=== PATIENT | female | born 1975 | race Caucasian/White ===

== ENCOUNTER 2017-01-01 23:26 | Emergency (ER) | payer SELFPAY ==
[~2017-01-01] VITALS: Ht 154.9 cm; Wt 113.0 kg
[~2017-01-01 23:26] MED LIST: AMOXICILLIN500 MG PO; ATENOLOL50 MG PO; ATIVAN0.5 MG PO; BACTRIM DS1 TAB PO; CEPHALEXIN500 MG PO; CLARITIN10 M1 PO; FERR SULFATE325 MG PO; FERRAPLUS 90 PO; FERROUS SULFAT325 MG PO; FLINTSTONE1 PO; HYDROCHLOROT12.5 MG OR; IRON325 M1 PO; LISINOP/HCTZ1 TAB PO; LISINOPRIL10 MG PO; LISINOPRIL20 MG PO; LORTAB 5/325 PO; LORTAB 5/3255 MG PO; LORTAB 7.57.5 MG PO; MOTRIN600 MG/TAB PO; NAPROSYN500 MG PO; NO MEDS; OMEPRAZOLE20 MG PO; PENICILLN VK500 MG OR; PENICILLN VK500 MG PO; PERCOCET1 TA4 PO; PHENERGAN25 MG/TAB PO; ROBITUSSIN AC10 ML PO; TESSALON PER100 MG PO; TORADOL PO; ULTRAM50 M1 PO; ULTRAM50 MG OR; ULTRAM50 MG PO; XANAX XR0.5 MG PO; ZANTAC 150 PO
[2017-01-02 00:22] LABS: HEMATOCRIT 44.6 % (37.0-47.0); HEMOGLOBIN 14.4 g/dl (12.0-16.0); MEAN CORPUSCULAR HGB 29.7 pG CALC (26.0-32.0); MEAN CORPUSCULAR HGB CONC 32.3 g/L CALC (32.0-36.0); NEUT# 12.12 thou/uL (2.00-7.15); RED BLOOD COUNT 4.85 mill/uL (4.20-5.60); RED CELL DISTRI WIDTH 12.9 % (11.5-15.5)
[2017-01-02] MEDS ORDERED: TRAZODONE50 MG PO (00:28)
[2017-01-02] MEDS ORDERED: HYDROCHLOROT25 MG PO (00:29)
[2017-01-02] MEDS ORDERED: BUSPIRONE5 MG PO (00:29)
[2017-01-02 00:37] LABS: ALKALINE PHOSPHATASE 70 u/l (38-126); ANION GAP 19 (6-22 (CALC)); BILIRUBIN, TOTAL 0.5 mg/dL (0.0-1.4); BUN 10 mg/dL (7-17); BUN/CREATININE RATIO 10 (12-20 (CALC)); CALCIUM 9.8 mg/dL (8.4-10.2); CARBON DIOXIDE 28 mmol/l (22-30); CHLORIDE 98 mmol/l (95-108); GFR > 60 ML/MIN (>=60 (CALC)); GFR FOR AFR.AMER. > 60 ML/MIN (>=60 (CALC)); GLUCOSE 162 mg/dL (65-105); POTASSIUM 3.7 mmol/l (3.5-5.1); SGOT/AST 21 u/l (14-36); SGPT/ALT 41 u/l (9-52); SODIUM 142 mmol/l (137-146); TOTAL PROTEIN 8.4 g/dL (6.3-8.2); URINE BILIRUBIN - DIPSTICK NEGATIVE (NEGATIVE); URINE BLOOD DIPSTICK NEGATIVE (NEGATIVE); URINE CLARITY CLEAR; URINE COLOR YELLOW; URINE GLUCOSE - DIPSTICK NEGATIVE (NEGATIVE); URINE KETONE NEGATIVE (NEGATIVE); URINE LEUK ESTERASE NEGATIVE (NEGATIVE); URINE NITRITE - DIPSTICK NEGATIVE (Negative); URINE PROTEIN - DIPSTICK NEGATIVE (NEG-TRACE); URINE SPECIFIC GRAVITY <=1.005; URINE UROBILINOGEN - DIPSTICK 0.2 E.U./dL (0.2)
[2017-01-02 00:49] LABS: MYOGLOBIN 30 ng/mL (0 - 62)
[2017-01-02 01:21] LABS: ACT PARTIAL THROMBO TIME 27.3 SECONDS (20.0-32.5); INTERNATIONAL NORMALIZED RATIO 0.9 RATIO (0.7-1.3)
[2017-01-02 02:56] VITALS: BP 137/77
== END 2017-01-02 02:53 | disposition home or self-care (01) | DRG 313 ==
LOC: ED 23:26
PROVIDERS: Emergency Medicine
DX: R07.89 Other chest pain (principal); I10 Essential (primary) hypertension; F41.0 Panic disorder [episodic paroxysmal anxiety]; J45.909 Unspecified asthma, uncomplicated

== ENCOUNTER 2017-10-08 20:06 | Emergency (ER) | payer SELFPAY ==
[~2017-10-08] VITALS: Ht 154.9 cm; Wt 111.0 kg
[~2017-10-08 20:06] MED LIST changes: +BUSPIRONE5 MG PO; +HYDROCHLOROT25 MG PO; +TRAZODONE50 MG PO
[2017-10-08] MEDS ORDERED: ORPHENADRINE100 MG PO (22:58)
[2017-10-08] MEDS ORDERED: IBUPROFEN600 MG PO (22:58)
[2017-10-08 23:22] VITALS: BP 170/83
== END 2017-10-08 23:20 | disposition home or self-care (01) | DRG 552 ==
LOC: ED 20:06
DX: M47.816 Spondylosis without myelopathy or radiculopathy, lumbar region (principal)

== ENCOUNTER 2018-02-22 19:15 | Emergency (ER) | payer SELFPAY ==
[~2018-02-22 19:15] MED LIST changes: +IBUPROFEN600 MG PO; +ORPHENADRINE100 MG PO
== END 2018-02-22 19:30 | disposition left against medical advice (07) | DRG 951 ==
LOC: ED 19:15 → LWOBS 19:30
DX: Z91.19 Patient's noncompliance with other medical treatment and regimen (principal)

== ENCOUNTER 2018-03-02 11:56 | Emergency (ER) | payer SELFPAY ==
[~2018-03-02] VITALS: Ht 154.9 cm; Wt 108.6 kg
[2018-03-02 13:21] LABS: URINE BILIRUBIN - DIPSTICK NEGATIVE (NEGATIVE); URINE BLOOD DIPSTICK NEGATIVE (NEGATIVE); URINE COLOR YELLOW; URINE GLUCOSE - DIPSTICK NEGATIVE (NEGATIVE); URINE KETONE NEGATIVE (NEGATIVE); URINE NITRITE - DIPSTICK NEGATIVE (Negative); URINE PH 7.5 (4.5-8.0); URINE PROTEIN - DIPSTICK NEGATIVE (NEG-TRACE); URINE UROBILINOGEN - DIPSTICK 0.2 E.U./dL (0.2)
[2018-03-02 13:28] LABS: HEMATOCRIT 43.2 % (37.0-47.0); HEMOGLOBIN 14.1 g/dl (12.0-16.0); IMMATURE GRANULOCYTES 0.5 % (0.0-5.0); MEAN CELL VOLUME 91.9 fL CALC (80.0-100.0); MEAN CORPUSCULAR HGB CONC 32.6 g/L CALC (32.0-36.0); NEUT# 8.64 thou/uL (2.00-7.15); RED BLOOD COUNT 4.7 mill/uL (4.20-5.60); RED CELL DISTRI WIDTH 12.2 % (11.5-15.5)
[2018-03-02 13:31] LABS: URINE LEUK ESTERASE SMALL (NEGATIVE)
[2018-03-02 13:48] LABS: ANION GAP 16 (6-22 (CALC)); BUN 8 mg/dL (7-17); BUN/CREATININE RATIO 10 (12-20 (CALC)); CARBON DIOXIDE 30 mmol/l (22-30); CHLORIDE 98 mmol/l (95-108); CREATININE 0.8 mg/dL (0.5-1.0); GFR > 60 ML/MIN (>=60 (CALC)); GFR FOR AFR.AMER. > 60 ML/MIN (>=60 (CALC)); MAGNESIUM 1.8 mg/dL (1.6-2.3); SODIUM 140 mmol/l (137-146)
[2018-03-02 13:54] LABS: URINE RBC 0-2 RBC/hpf (0-5); URINE SQUAMOUS EPITHELIAL CELL MODERATE EPI/hpf (0-FEW)
[2018-03-02 13:55] LABS: URINE BACTERIA MANY hpf
[2018-03-02] MEDS ORDERED: CEPHALEXIN500 M1 PO (14:07)
[2018-03-02 14:09] VITALS: BP 127/76
== END 2018-03-02 14:13 | disposition home or self-care (01) | DRG 948 ==
LOC: ED 11:56
PROVIDERS: Family Medicine
DX: R53.1 Weakness (principal); N39.0 Urinary tract infection, site not specified; I10 Essential (primary) hypertension

== ENCOUNTER 2018-03-21 09:24 | Emergency (ER) | payer SELFPAY ==
[~2018-03-21] VITALS: Ht 154.9 cm; Wt 108.6 kg
[~2018-03-21 09:24] MED LIST changes: +CEPHALEXIN500 M1 PO
[2018-03-21 10:22] LABS: HEMATOCRIT 42.4 % (37.0-47.0); HEMOGLOBIN 13.7 g/dl (12.0-16.0); IMMATURE GRANULOCYTES 0.3 % (0.0-5.0); MEAN CELL VOLUME 92.8 fL CALC (80.0-100.0); MEAN CORPUSCULAR HGB CONC 32.3 g/L CALC (32.0-36.0); NEUT# 6.97 thou/uL (2.00-7.15); RED BLOOD COUNT 4.57 mill/uL (4.20-5.60); RED CELL DISTRI WIDTH 12.4 % (11.5-15.5)
[2018-03-21 10:39] LABS: ALBUMIN 4.2 g/dL (3.2-5.0); ALKALINE PHOSPHATASE 52 u/l (38-126); ANION GAP 15 (6-22 (CALC)); BILIRUBIN, TOTAL 0.2 mg/dL (0.0-1.4); BUN 11 mg/dL (7-17); BUN/CREATININE RATIO 16 (12-20 (CALC)); CARBON DIOXIDE 29 mmol/l (22-30); CHLORIDE 101 mmol/l (95-108); CREATININE 0.7 mg/dL (0.5-1.0); GFR > 60 ML/MIN (>=60 (CALC)); GFR FOR AFR.AMER. > 60 ML/MIN (>=60 (CALC)); MAGNESIUM 1.7 mg/dL (1.6-2.3); POTASSIUM 4.3 mmol/l (3.5-5.1); SGOT/AST 18 u/l (14-36); SODIUM 141 mmol/l (137-146)
[2018-03-21 10:43] LABS: URINE BILIRUBIN - DIPSTICK NEGATIVE (NEGATIVE); URINE BLOOD DIPSTICK NEGATIVE (NEGATIVE); URINE COLOR YELLOW; URINE GLUCOSE - DIPSTICK NEGATIVE (NEGATIVE); URINE KETONE NEGATIVE (NEGATIVE); URINE LEUK ESTERASE NEGATIVE (NEGATIVE); URINE NITRITE - DIPSTICK NEGATIVE (Negative); URINE PROTEIN - DIPSTICK NEGATIVE (NEG-TRACE); URINE UROBILINOGEN - DIPSTICK 0.2 E.U./dL (0.2)
[2018-03-21] MEDS ORDERED: ONDANSETRON4 MG PO (11:07)
[2018-03-21 11:19] VITALS: BP 132/66
== END 2018-03-21 11:25 | disposition home or self-care (01) | DRG 392 ==
LOC: ED 09:24
PROVIDERS: Emergency Medicine
DX: R11.0 Nausea (principal); R53.1 Weakness

== ENCOUNTER 2018-04-06 14:52 | Emergency (ER) | payer SELFPAY ==
[~2018-04-06] VITALS: Ht 154.9 cm; Wt 109.1 kg
[~2018-04-06 14:52] MED LIST changes: +ONDANSETRON4 MG PO
[2018-04-06 16:08] LABS: HEMATOCRIT 42.1 % (37.0-47.0); HEMOGLOBIN 13.8 g/dl (12.0-16.0); IMMATURE GRANULOCYTES 0.4 % (0.0-5.0); MEAN CELL VOLUME 90.9 fL CALC (80.0-100.0); MEAN CORPUSCULAR HGB 29.8 pG CALC (26.0-32.0); MEAN CORPUSCULAR HGB CONC 32.8 g/L CALC (32.0-36.0); NEUT# 8.76 thou/uL (2.00-7.15); RED BLOOD COUNT 4.63 mill/uL (4.20-5.60); RED CELL DISTRI WIDTH 12.3 % (11.5-15.5)
[2018-04-06 16:22] LABS: BUN 6 mg/dL (7-17); BUN/CREATININE RATIO 10 (12-20 (CALC)); CARBON DIOXIDE 30 mmol/l (22-30); CHLORIDE 96 mmol/l (95-108); CREATININE 0.6 mg/dL (0.5-1.0); GFR > 60 ML/MIN (>=60 (CALC)); GFR FOR AFR.AMER. > 60 ML/MIN (>=60 (CALC)); SODIUM 138 mmol/l (137-146)
[2018-04-06 16:58] LABS: ANION GAP 15 (6-22 (CALC)); POTASSIUM 3.3 mmol/l (3.5-5.1)
[2018-04-06] MEDS ORDERED: K-TAB20 MEQ PO (17:04)
[2018-04-06 17:27] VITALS: BP 146/87
== END 2018-04-06 17:53 | disposition home or self-care (01) | DRG 948 ==
LOC: ED 14:52
PROVIDERS: Family Medicine
DX: R53.81 Other malaise (principal); I10 Essential (primary) hypertension

== ENCOUNTER 2018-04-21 00:39 | Emergency (ER) | payer SELFPAY ==
[~2018-04-21] VITALS: Ht 154.9 cm; Wt 110.0 kg
[~2018-04-21 00:39] MED LIST changes: +K-TAB20 MEQ PO
[2018-04-21 02:43] LABS: HEMATOCRIT 40.9 % (37.0-47.0); HEMOGLOBIN 13.2 g/dl (12.0-16.0); IMMATURE GRANULOCYTES 0.4 % (0.0-5.0); MEAN CELL VOLUME 91.9 fL CALC (80.0-100.0); MEAN CORPUSCULAR HGB 29.7 pG CALC (26.0-32.0); MEAN CORPUSCULAR HGB CONC 32.3 g/L CALC (32.0-36.0); NEUT# 8.42 thou/uL (2.00-7.15); RED BLOOD COUNT 4.45 mill/uL (4.20-5.60); RED CELL DISTRI WIDTH 12.4 % (11.5-15.5)
[2018-04-21 03:00] LABS: ALBUMIN 4.4 g/dL (3.2-5.0); ALKALINE PHOSPHATASE 50 u/l (38-126); AMYLASE < 30 u/l (30-110); ANION GAP 15 (6-22 (CALC)); BILIRUBIN, TOTAL 0.4 mg/dL (0.0-1.4); BUN 10 mg/dL (7-17); BUN/CREATININE RATIO 15 (12-20 (CALC)); CARBON DIOXIDE 30 mmol/l (22-30); CHLORIDE 99 mmol/l (95-108); CREATININE 0.6 mg/dL (0.5-1.0); GFR > 60 ML/MIN (>=60 (CALC)); GFR FOR AFR.AMER. > 60 ML/MIN (>=60 (CALC)); LIPASE 65 u/l (23-300); POTASSIUM 3.4 mmol/l (3.5-5.1); SGOT/AST 20 u/l (14-36); SODIUM 141 mmol/l (137-146); TOTAL PROTEIN 7.6 g/dL (6.3-8.2)
[2018-04-21 03:05] LABS: URINE BILIRUBIN - DIPSTICK NEGATIVE (NEGATIVE); URINE BLOOD DIPSTICK NEGATIVE (NEGATIVE); URINE COLOR YELLOW; URINE GLUCOSE - DIPSTICK NEGATIVE (NEGATIVE); URINE KETONE NEGATIVE (NEGATIVE); URINE LEUK ESTERASE NEGATIVE (NEGATIVE); URINE NITRITE - DIPSTICK NEGATIVE (Negative); URINE PROTEIN - DIPSTICK NEGATIVE (NEG-TRACE); URINE SPECIFIC GRAVITY 1.015; URINE UROBILINOGEN - DIPSTICK 0.2 E.U./dL (0.2)
[2018-04-21 03:12] LABS: MYOGLOBIN 34 ng/mL (0 - 62)
[2018-04-21 05:00] VITALS: BP 138/79
== END 2018-04-21 05:30 | disposition home or self-care (01) | DRG 392 ==
LOC: ED 00:39
PROVIDERS: Emergency Medicine
DX: R11.0 Nausea (principal); I10 Essential (primary) hypertension; E87.6 Hypokalemia; Z86.14 Personal history of Methicillin resistant Staphylococcus aureus infection
CPT/HCPCS: J1956

== ENCOUNTER 2018-05-03 19:44 | Emergency (ER) | payer SELFPAY ==
[~2018-05-03] VITALS: Ht 154.9 cm; Wt 109.0 kg
[2018-05-03] MEDS ORDERED: FAMOTIDINE20 M1 PO (19:53)
[2018-05-03] MEDS ORDERED: METRONIDAZOL500 MG PO (19:53)
[2018-05-03] MEDS ORDERED: BIAXIN XL PAC500 MG PO (19:53)
[2018-05-03 19:55] VITALS: BP 131/73
== END 2018-05-03 20:54 | disposition home or self-care (01) | DRG 392 ==
LOC: ED 19:44
DX: R11.0 Nausea (principal); A04.8 Other specified bacterial intestinal infections; I10 Essential (primary) hypertension

== ENCOUNTER 2018-05-18 01:00 | Emergency (ER) | payer SELFPAY ==
[~2018-05-18] VITALS: Ht 154.9 cm; Wt 109.0 kg
[~2018-05-18 01:00] MED LIST changes: +BIAXIN XL PAC500 MG PO; +FAMOTIDINE20 M1 PO; +METRONIDAZOL500 MG PO
[2018-05-18 02:40] VITALS: BP 136/70
== END 2018-05-18 02:40 | disposition home or self-care (01) | DRG 310 ==
LOC: ED 01:00
DX: R00.2 Palpitations (principal)

== ENCOUNTER 2018-06-21 20:56 | Emergency (ER) | payer SELFPAY ==
[~2018-06-21] VITALS: Ht 154.9 cm; Wt 109.0 kg
[2018-06-21 22:03] LABS: HEMATOCRIT 41.9 % (37.0-47.0); HEMOGLOBIN 13.5 g/dl (12.0-16.0); IMMATURE GRANULOCYTES 0.5 % (0.0-5.0); MEAN CELL VOLUME 91.1 fL CALC (80.0-100.0); MEAN CORPUSCULAR HGB 29.3 pG CALC (26.0-32.0); MEAN CORPUSCULAR HGB CONC 32.2 g/L CALC (32.0-36.0); NEUT# 11.11 thou/uL (2.00-7.15); RED BLOOD COUNT 4.6 mill/uL (4.20-5.60); RED CELL DISTRI WIDTH 12.4 % (11.5-15.5)
[2018-06-21] MEDS ORDERED: METFORMIN500 MG PO (22:03)
[2018-06-21 22:04] LABS: URINE BILIRUBIN - DIPSTICK NEGATIVE (NEGATIVE); URINE BLOOD DIPSTICK NEGATIVE (NEGATIVE); URINE COLOR YELLOW; URINE GLUCOSE - DIPSTICK NEGATIVE (NEGATIVE); URINE KETONE NEGATIVE (NEGATIVE); URINE LEUK ESTERASE NEGATIVE (NEGATIVE); URINE NITRITE - DIPSTICK NEGATIVE (Negative); URINE PROTEIN - DIPSTICK NEGATIVE (NEG-TRACE); URINE UROBILINOGEN - DIPSTICK 0.2 E.U./dL (0.2)
[2018-06-21 22:19] LABS: ALBUMIN 4.6 g/dL (3.2-5.0); ALKALINE PHOSPHATASE 53 u/l (38-126); ANION GAP 16 (6-22 (CALC)); BILIRUBIN, TOTAL 0.4 mg/dL (0.0-1.4); BUN 9 mg/dL (7-17); BUN/CREATININE RATIO 11 (12-20 (CALC)); CARBON DIOXIDE 31 mmol/l (22-30); CHLORIDE 98 mmol/l (95-108); CREATININE 0.8 mg/dL (0.5-1.0); GFR > 60 ML/MIN (>=60 (CALC)); GFR FOR AFR.AMER. > 60 ML/MIN (>=60 (CALC)); POTASSIUM 3.7 mmol/l (3.5-5.1); SGOT/AST 23 u/l (14-36); SODIUM 141 mmol/l (137-146); TOTAL PROTEIN 7.8 g/dL (6.3-8.2)
[2018-06-21] MEDS ORDERED: CIPROFLOXACN500 MG PO (23:29)
[2018-06-21 23:34] VITALS: BP 146/78
[2018-06-22 01:03] LABS: C. DIFFICILE TOXIN A&B NEGATIVE (NEGATIVE)
== END 2018-06-21 23:49 | disposition home or self-care (01) | DRG 392 ==
LOC: ED 20:56
PROVIDERS: Family Medicine
DX: R19.7 Diarrhea, unspecified (principal); R50.9 Fever, unspecified

== ENCOUNTER 2018-08-19 19:31 | Emergency (ER) | payer SELFPAY ==
[~2018-08-19] VITALS: Ht 154.9 cm; Wt 106.6 kg
[~2018-08-19 19:31] MED LIST changes: +CIPROFLOXACN500 MG PO; +METFORMIN500 MG PO
[2018-08-19] MEDS ORDERED: LASIX 40 MG40 MG/TAB PO (19:41)
[2018-08-19 20:14] LABS: HEMATOCRIT 42.4 % (37.0-47.0); HEMOGLOBIN 13.4 g/dl (12.0-16.0); IMMATURE GRANULOCYTES 0.5 % (0.0-5.0); MEAN CELL VOLUME 91.8 fL CALC (80.0-100.0); MEAN CORPUSCULAR HGB CONC 31.6 g/L CALC (32.0-36.0); NEUT# 10.52 thou/uL (2.00-7.15); RED BLOOD COUNT 4.62 mill/uL (4.20-5.60); RED CELL DISTRI WIDTH 12.3 % (11.5-15.5)
[2018-08-19 20:15] LABS: URINE BILIRUBIN - DIPSTICK NEGATIVE (NEGATIVE); URINE BLOOD DIPSTICK NEGATIVE (NEGATIVE); URINE COLOR YELLOW; URINE GLUCOSE - DIPSTICK NEGATIVE (NEGATIVE); URINE KETONE NEGATIVE (NEGATIVE); URINE LEUK ESTERASE NEGATIVE (NEGATIVE); URINE NITRITE - DIPSTICK NEGATIVE (Negative); URINE PH 5.5 (4.5-8.0); URINE PROTEIN - DIPSTICK NEGATIVE (NEG-TRACE); URINE SPECIFIC GRAVITY <=1.005; URINE UROBILINOGEN - DIPSTICK 0.2 E.U./dL (0.2)
[2018-08-19 20:40] LABS: ALBUMIN 4.6 g/dL (3.2-5.0); ALKALINE PHOSPHATASE 63 u/l (38-126); ANION GAP 17 (6-22 (CALC)); BILIRUBIN, TOTAL 0.4 mg/dL (0.0-1.4); BUN 8 mg/dL (7-17); BUN/CREATININE RATIO 11 (12-20 (CALC)); CARBON DIOXIDE 28 mmol/l (22-30); CHLORIDE 99 mmol/l (95-108); CREATININE 0.7 mg/dL (0.5-1.0); GFR > 60 ML/MIN (>=60 (CALC)); GFR FOR AFR.AMER. > 60 ML/MIN (>=60 (CALC)); POTASSIUM 3.7 mmol/l (3.5-5.1); SGOT/AST 22 u/l (14-36); SODIUM 140 mmol/l (137-146); TOTAL PROTEIN 7.8 g/dL (6.3-8.2)
[2018-08-19] MEDS ORDERED: LOMOTIL2.5 MG PO (20:54)
[2018-08-19] MEDS ORDERED: ZOFRAN ODT4 MG PO (20:54)
[2018-08-19 21:21] VITALS: BP 119/68
== END 2018-08-19 21:21 | disposition home or self-care (01) | DRG 392 ==
LOC: ED 19:31
PROVIDERS: Family Medicine
DX: R19.7 Diarrhea, unspecified (principal); D72.829 Elevated white blood cell count, unspecified; E11.9 Type 2 diabetes mellitus without complications; I10 Essential (primary) hypertension

== ENCOUNTER 2018-09-08 18:55 | Emergency (ER) | payer SELFPAY ==
[~2018-09-08] VITALS: Ht 157.5 cm; Wt 108.0 kg
[~2018-09-08 18:55] MED LIST changes: +LASIX 40 MG40 MG/TAB PO; +LOMOTIL2.5 MG PO; +ZOFRAN ODT4 MG PO
[2018-09-08 19:32] LABS: ALBUMIN 5.1 g/dL (3.2-5.0); ALKALINE PHOSPHATASE 75 u/l (38-126); ANION GAP 21 (6-22 (CALC)); BUN 9 mg/dL (7-17); BUN/CREATININE RATIO 12 (12-20 (CALC)); CARBON DIOXIDE 28 mmol/l (22-30); CHLORIDE 96 mmol/l (95-108); CREATININE 0.7 mg/dL (0.5-1.0); ETHYL ALCOHOL 0 mg/dl (0-30); GFR > 60 ML/MIN (>=60 (CALC)); GFR FOR AFR.AMER. > 60 ML/MIN (>=60 (CALC)); POTASSIUM 3.8 mmol/l (3.5-5.1); SGOT/AST 29 u/l (14-36); SODIUM 141 mmol/l (137-146); TOTAL PROTEIN 8.9 g/dL (6.3-8.2)
[2018-09-08 19:34] LABS: BILIRUBIN, TOTAL 0.8 mg/dL (0.0-1.4)
[2018-09-08 19:43] LABS: HEMOGLOBIN 14.2 g/dl (12.0-16.0); IMMATURE GRANULOCYTES 0.4 % (0.0-5.0); MEAN CELL VOLUME 90.5 fL CALC (80.0-100.0); MEAN CORPUSCULAR HGB 29.2 pG CALC (26.0-32.0); MEAN CORPUSCULAR HGB CONC 32.3 g/L CALC (32.0-36.0); NEUT# 13.03 thou/uL (2.00-7.15); RED BLOOD COUNT 4.86 mill/uL (4.20-5.60)
[2018-09-08 19:44] LABS: URINE BILIRUBIN - DIPSTICK NEGATIVE (NEGATIVE); URINE BLOOD DIPSTICK NEGATIVE (NEGATIVE); URINE COLOR YELLOW; URINE GLUCOSE - DIPSTICK NEGATIVE (NEGATIVE); URINE KETONE NEGATIVE (NEGATIVE); URINE LEUK ESTERASE NEGATIVE (NEGATIVE); URINE NITRITE - DIPSTICK NEGATIVE (Negative); URINE PH 5.5 (4.5-8.0); URINE PROTEIN - DIPSTICK NEGATIVE (NEG-TRACE); URINE SPECIFIC GRAVITY <=1.005; URINE UROBILINOGEN - DIPSTICK 0.2 E.U./dL (0.2)
[2018-09-08 19:45] LABS: MYOGLOBIN 27 ng/mL (0 - 62)
[2018-09-08 19:54] LABS: BARBITURATES NEGATIVE (NEGATIVE); COCAINE NEGATIVE (NEGATIVE); METHADONE NEGATIVE (NEGATIVE); TETRAHYDROCANNABIONOL NEGATIVE (NEGATIVE); TRICYLIC ANTIDEPRESSANTS NEGATIVE (NEGATIVE)
[2018-09-08 19:55] LABS: OXCYCODONE NEGATIVE (NEGATIVE)
[2018-09-08 20:57] VITALS: BP 142/64
== END 2018-09-08 20:55 | disposition left against medical advice (07) | DRG 310 ==
LOC: ED 18:55 → ED-I 19:10 → ED 19:10 → ED-I 19:49 → ED 20:55
PROVIDERS: Emergency Medicine
DX: R00.2 Palpitations (principal); R94.31 Abnormal electrocardiogram [ECG] [EKG]; D72.829 Elevated white blood cell count, unspecified; I10 Essential (primary) hypertension; E11.9 Type 2 diabetes mellitus without complications; Z91.19 Patient's noncompliance with other medical treatment and regimen; Z79.84 Long term (current) use of oral hypoglycemic drugs
CPT/HCPCS: J2060; Q9967

== ENCOUNTER 2018-10-09 13:48 | Emergency (ER) | payer SELFPAY ==
[~2018-10-09] VITALS: Ht 157.5 cm; Wt 105.0 kg
[2018-10-09 15:15] LABS: HEMOGLOBIN 13.7 g/dl (12.0-16.0); IMMATURE GRANULOCYTES 0.4 % (0.0-5.0); MEAN CELL VOLUME 91.3 fL CALC (80.0-100.0); MEAN CORPUSCULAR HGB 29.1 pG CALC (26.0-32.0); MEAN CORPUSCULAR HGB CONC 31.9 g/L CALC (32.0-36.0); NEUT# 8.92 thou/uL (2.00-7.15); RED BLOOD COUNT 4.71 mill/uL (4.20-5.60); RED CELL DISTRI WIDTH 11.9 % (11.5-15.5)
[2018-10-09 15:29] LABS: ANION GAP 14 (6-22 (CALC)); BUN 8 mg/dL (7-17); BUN/CREATININE RATIO 10 (12-20 (CALC)); CARBON DIOXIDE 32 mmol/l (22-30); CHLORIDE 98 mmol/l (95-108); CREATININE 0.8 mg/dL (0.5-1.0); GFR > 60 ML/MIN (>=60 (CALC)); GFR FOR AFR.AMER. > 60 ML/MIN (>=60 (CALC)); POTASSIUM 3.7 mmol/l (3.5-5.1); SODIUM 141 mmol/l (137-146)
[2018-10-09] MEDS ORDERED: K-TAB20 MEQ PO (15:39)
[2018-10-09 15:56] VITALS: BP 125/68
== END 2018-10-09 15:56 | disposition home or self-care (01) | DRG 948 ==
LOC: ED 13:48
PROVIDERS: Family Medicine
DX: R53.1 Weakness (principal); R42 Dizziness and giddiness; T43.595A Adverse effect of other antipsychotics and neuroleptics, initial encounter; I10 Essential (primary) hypertension; E11.9 Type 2 diabetes mellitus without complications; Z79.84 Long term (current) use of oral hypoglycemic drugs

== ENCOUNTER 2018-11-13 18:40 | Observation (INO) | payer SELFPAY ==
[~2018-11-13] VITALS: Ht 154.9 cm; Wt 108.0 kg
--- NOTE | 2018-11-13 18:53 | NUR ---
PATIENT AMBULATES TO ROOM WITH STEADY GAIT
[2018-11-13 19:32] LABS: HEMATOCRIT 40.8 % (37.0-47.0); HEMOGLOBIN 13.3 g/dl (12.0-16.0); IMMATURE GRANULOCYTES 0.4 % (0.0-5.0); MEAN CELL VOLUME 90.1 fL CALC (80.0-100.0); MEAN CORPUSCULAR HGB 29.4 pG CALC (26.0-32.0); MEAN CORPUSCULAR HGB CONC 32.6 g/L CALC (32.0-36.0); NEUT# 11.61 thou/uL (2.00-7.15); RED BLOOD COUNT 4.53 mill/uL (4.20-5.60); RED CELL DISTRI WIDTH 12.2 % (11.5-15.5)
[2018-11-13 19:50] LABS: ALBUMIN 4.7 g/dL (3.2-5.0); ALKALINE PHOSPHATASE 57 u/l (38-126); ANION GAP 19 (6-22 (CALC)); BUN 7 mg/dL (7-17); BUN/CREATININE RATIO 8 (12-20 (CALC)); CARBON DIOXIDE 29 mmol/l (22-30); CHLORIDE 95 mmol/l (95-108); CREATININE 0.9 mg/dL (0.5-1.0); GFR > 60 ML/MIN (>=60 (CALC)); GFR FOR AFR.AMER. > 60 ML/MIN (>=60 (CALC)); LIPASE 73 u/l (23-300); POTASSIUM 3.9 mmol/l (3.5-5.1); SGOT/AST 20 u/l (14-36); SODIUM 139 mmol/l (137-146)
[2018-11-13 19:52] LABS: AMYLASE < 30 u/l (30-110); BILIRUBIN, TOTAL 0.4 mg/dL (0.0-1.4)
[2018-11-13 20:42] LABS: URINE BILIRUBIN - DIPSTICK NEGATIVE (NEGATIVE); URINE BLOOD DIPSTICK NEGATIVE (NEGATIVE); URINE COLOR YELLOW; URINE GLUCOSE - DIPSTICK NEGATIVE (NEGATIVE); URINE KETONE NEGATIVE (NEGATIVE); URINE LEUK ESTERASE NEGATIVE (NEGATIVE); URINE NITRITE - DIPSTICK NEGATIVE (Negative); URINE PROTEIN - DIPSTICK NEGATIVE (NEG-TRACE); URINE UROBILINOGEN - DIPSTICK 0.2 E.U./dL (0.2)
--- NOTE | 2018-11-13 21:56 | NUR ---
DR HOLCOMB IN WITH PT. RECEIVED REPORT FROM SOLEDAD WHITE. 2 LITER OF SALINE UP PER ORDER.
--- NOTE | 2018-11-13 22:45 | NUR ---
REPORT GIVEN TO SOLEDAD HAMEED.
--- NOTE | 2018-11-13 23:12 | NUR ---
Admission Note Report Given to: ARACELIS Transported by: Wheelchair X Stretcher Transported with: X Nurse Transporter X Patent IV O2 Coordinator Of Rehabilitation Services
--- NOTE | 2018-11-13 23:14 | NUR ---
RECEIVED REPORT FROM NURSE JIMENEZ, PATIENT TRANSPORTED VIA BED, AMBULATED AND ASSISTED IN BED, WITH SALINE LOCK ON LAC G20 PATENT AND FLUSHES WELL, NOTED TO HAVE FREQUEST BOUTS OF DIARRHEA, REINFORCED ON FULL LIQUID DIET ORDERED, INSTRUCTED ON HAND WASHING, ASSISTED TO SHOWER, ASSISTED BACK IN BED, ORIENTED TO ROOM AMD CALL LIGHT SYSTEM, IN ROOM.
[2018-11-13 23:21] VITALS: BP 148/78
--- NOTE | 2018-11-14 01:09 | NUR ---
CALLED DR. HOLCOMB AT [phone] ABOUT PATIENT REQUEST TO CONTINUE EVENING HOME MEDICATION, REQUEST SENT TO PHARMACY
[2018-11-14 03:29] VITALS: BP 137/81
--- NOTE | 2018-11-14 04:19 | NUR ---
PATIENT RESTING IN BED WITH EYES CLOSED, DENIES DISCOMFORTS AT THIS TIME, REMAINS ON CONTACT ISOLATION, CALL LIGHT AT REACH.
--- NOTE | 2018-11-14 06:50 | NUR ---
PT REPORT RECIEVED FROM SOLEDAD HENDRICKS. PT RESTING .NO S/S OF DISTRESS. CALL LIGHT IN REACH. WILL CONTINUE TO MONITOR.
[2018-11-14 08:03] VITALS: BP 146/81
--- NOTE | 2018-11-14 08:03 | NUR ---
PT A/O X3. RESP EVEN AND UNLABORED. LUNG SOUNDS CLEAR. BOWEL SOUNDS ACTIVE X4. STRONG RADIAL, WEAK PEDAL PULSES. #20 LAC NS @100. SITE APPEARS HEALTHY. TRACE OF EDEMA NOTED TO BLE. SKIN INTACT. PT DENIES ANY PAIN OR NEEDS. POC DISCUSSED. SAFETY PRECAUTIONS IN PLACE. CONTACT PRECAUTIONS. CALL LIGHT IN REACH. WILL CONTINUE TO MONITOR.
[2018-11-14 09:45] VITALS: BP 146/81
--- NOTE | 2018-11-14 11:49 | NUR ---
PT WATCHING TELEVISION. NO C/O PAIN OR NEEDS. IV FLUIDS INFUSIING. CALL LIGHT IN REACH. WILL CONTINUE TO MONITOR.
[2018-11-14] MEDS ORDERED: FIRST-VANCOM25 MG/ML PO (12:24)
--- NOTE | 2018-11-14 13:14 | NUR ---
D/C INSTRUCTIONS DISCUSSED W/ PT. PT STATES UNDERSTANDING. IV REMOVED; CATHETER INTACT. PT WAITING FOR PRESCRIPTION TO BE FILLED THROUGH [facility].
--- NOTE | 2018-11-14 13:36 | NUR ---
Discharge instructions given. Patient verbalizes understanding of same. Discharged in stable condition via Ambulatory to Home with family. All belongings sent with pt.
== END 2018-11-14 13:36 | disposition home or self-care (01) | DRG 373 ==
LOC: ED 18:40 → ED-I 21:55 → ED 22:15 → MS2 22:16
PROVIDERS: Emergency Medicine; ADMIT Internal Medicine; ATTEND Internal Medicine
DX: A04.72 Enterocolitis due to Clostridium difficile, not specified as recurrent (principal); E11.9 Type 2 diabetes mellitus without complications; I10 Essential (primary) hypertension; F41.9 Anxiety disorder, unspecified; Z86.14 Personal history of Methicillin resistant Staphylococcus aureus infection; Z79.84 Long term (current) use of oral hypoglycemic drugs; Z86.19 Personal history of other infectious and parasitic diseases
CPT/HCPCS: G0378; Q9967

== ENCOUNTER 2018-11-22 11:47 | Emergency (ER) | payer SELFPAY ==
[~2018-11-22] VITALS: Ht 154.9 cm; Wt 115.0 kg
[~2018-11-22 11:47] MED LIST changes: +FIRST-VANCOM25 MG/ML PO
[2018-11-22 13:38] LABS: HEMATOCRIT 42.2 % (37.0-47.0); HEMOGLOBIN 13.6 g/dl (12.0-16.0); IMMATURE GRANULOCYTES 0.4 % (0.0-5.0); MEAN CORPUSCULAR HGB CONC 32.2 g/L CALC (32.0-36.0); NEUT# 6.94 thou/uL (2.00-7.15); RED BLOOD COUNT 4.69 mill/uL (4.20-5.60); RED CELL DISTRI WIDTH 12.5 % (11.5-15.5)
[2018-11-22 13:45] LABS: ALBUMIN 4.7 g/dL (3.2-5.0); ALKALINE PHOSPHATASE 66 u/l (38-126); ANION GAP 16 (6-22 (CALC)); BILIRUBIN, TOTAL 0.4 mg/dL (0.0-1.4); BUN 8 mg/dL (7-17); BUN/CREATININE RATIO 10 (12-20 (CALC)); CARBON DIOXIDE 28 mmol/l (22-30); CHLORIDE 99 mmol/l (95-108); CREATININE 0.8 mg/dL (0.5-1.0); GFR > 60 ML/MIN (>=60 (CALC)); GFR FOR AFR.AMER. > 60 ML/MIN (>=60 (CALC)); POTASSIUM 4.1 mmol/l (3.5-5.1); SGOT/AST 33 u/l (14-36); SODIUM 139 mmol/l (137-146)
[2018-11-22 13:57] LABS: MYOGLOBIN 23 ng/mL (0 - 62)
[2018-11-22 15:04] VITALS: BP 143/85
== END 2018-11-22 15:04 | disposition home or self-care (01) | DRG 149 ==
LOC: ED 11:47
PROVIDERS: Emergency Medicine
DX: R42 Dizziness and giddiness (principal); F41.9 Anxiety disorder, unspecified; I10 Essential (primary) hypertension; E11.9 Type 2 diabetes mellitus without complications; Z79.84 Long term (current) use of oral hypoglycemic drugs

== ENCOUNTER 2018-12-07 10:45 | Emergency (ER) | payer SELFPAY ==
[~2018-12-07] VITALS: Ht 154.9 cm; Wt 107.0 kg
[2018-12-07 11:29] LABS: HEMATOCRIT 42.6 % (37.0-47.0); HEMOGLOBIN 13.3 g/dl (12.0-16.0); IMMATURE GRANULOCYTES 0.5 % (0.0-5.0); MEAN CELL VOLUME 92.2 fL CALC (80.0-100.0); MEAN CORPUSCULAR HGB 28.8 pG CALC (26.0-32.0); MEAN CORPUSCULAR HGB CONC 31.2 g/L CALC (32.0-36.0); NEUT# 6.83 thou/uL (2.00-7.15); RED BLOOD COUNT 4.62 mill/uL (4.20-5.60); RED CELL DISTRI WIDTH 12.5 % (11.5-15.5)
[2018-12-07 11:35] LABS: URINE BILIRUBIN - DIPSTICK NEGATIVE (NEGATIVE); URINE BLOOD DIPSTICK NEGATIVE (NEGATIVE); URINE COLOR YELLOW; URINE GLUCOSE - DIPSTICK NEGATIVE (NEGATIVE); URINE KETONE NEGATIVE (NEGATIVE); URINE LEUK ESTERASE NEGATIVE (NEGATIVE); URINE NITRITE - DIPSTICK NEGATIVE (Negative); URINE PROTEIN - DIPSTICK NEGATIVE (NEG-TRACE); URINE UROBILINOGEN - DIPSTICK 0.2 E.U./dL (0.2)
[2018-12-07 11:44] LABS: ALBUMIN 4.4 g/dL (3.2-5.0); ALKALINE PHOSPHATASE 61 u/l (38-126); ANION GAP 14 (6-22 (CALC)); BILIRUBIN, TOTAL 0.3 mg/dL (0.0-1.4); BUN 11 mg/dL (7-17); BUN/CREATININE RATIO 16 (12-20 (CALC)); CARBON DIOXIDE 29 mmol/l (22-30); CHLORIDE 101 mmol/l (95-108); CREATININE 0.7 mg/dL (0.5-1.0); GFR > 60 ML/MIN (>=60 (CALC)); GFR FOR AFR.AMER. > 60 ML/MIN (>=60 (CALC)); LIPASE 65 u/l (23-300); POTASSIUM 4.2 mmol/l (3.5-5.1); SGOT/AST 26 u/l (14-36); SODIUM 139 mmol/l (137-146); TOTAL PROTEIN 7.6 g/dL (6.3-8.2)
[2018-12-07] MEDS ORDERED: ZOFRAN4 M1 PO (13:04)
[2018-12-07 13:13] VITALS: BP 159/74
== END 2018-12-07 13:18 | disposition home or self-care (01) | DRG 392 ==
LOC: ED 10:45
DX: R11.0 Nausea (principal); E11.65 Type 2 diabetes mellitus with hyperglycemia; I10 Essential (primary) hypertension; Z79.84 Long term (current) use of oral hypoglycemic drugs

== ENCOUNTER 2018-12-17 12:19 | Emergency (ER) | payer SELFPAY ==
[~2018-12-17] VITALS: Ht 154.9 cm; Wt 100.0 kg
[~2018-12-17 12:19] MED LIST changes: +ZOFRAN4 M1 PO
[2018-12-17 13:37] LABS: URINE BILIRUBIN - DIPSTICK NEGATIVE (NEGATIVE); URINE BLOOD DIPSTICK NEGATIVE (NEGATIVE); URINE COLOR YELLOW; URINE GLUCOSE - DIPSTICK NEGATIVE (NEGATIVE); URINE KETONE NEGATIVE (NEGATIVE); URINE LEUK ESTERASE NEGATIVE (Negative); URINE NITRITE - DIPSTICK NEGATIVE (Negative); URINE PROTEIN - DIPSTICK NEGATIVE (NEG-TRACE); URINE SPECIFIC GRAVITY <=1.005; URINE UROBILINOGEN - DIPSTICK 0.2 E.U./dL (0.2)
[2018-12-17 13:49] LABS: URINE CLARITY CLEAR
[2018-12-17 14:17] VITALS: BP 160/58
== END 2018-12-17 14:19 | disposition home or self-care (01) | DRG 950 ==
LOC: ED 12:19
DX: Z79.84 Long term (current) use of oral hypoglycemic drugs (principal); I10 Essential (primary) hypertension; E11.9 Type 2 diabetes mellitus without complications; R19.7 Diarrhea, unspecified

== ENCOUNTER 2018-12-20 08:50 | Emergency (ER) | payer SELFPAY ==
[~2018-12-20] VITALS: Ht 154.9 cm; Wt 105.0 kg
[2018-12-20 09:25] LABS: URINE BILIRUBIN - DIPSTICK NEGATIVE (NEGATIVE); URINE BLOOD DIPSTICK NEGATIVE (NEGATIVE); URINE COLOR YELLOW; URINE GLUCOSE - DIPSTICK NEGATIVE (NEGATIVE); URINE KETONE NEGATIVE (NEGATIVE); URINE LEUK ESTERASE NEGATIVE (NEGATIVE); URINE NITRITE - DIPSTICK NEGATIVE (Negative); URINE PH 6.5 (4.5-8.0); URINE PROTEIN - DIPSTICK NEGATIVE (NEG-TRACE); URINE SPECIFIC GRAVITY <=1.005; URINE UROBILINOGEN - DIPSTICK 0.2 E.U./dL (0.2)
[2018-12-20 09:27] LABS: HEMATOCRIT 41.6 % (37.0-47.0); HEMOGLOBIN 13.1 g/dl (12.0-16.0); IMMATURE GRANULOCYTES 0.4 % (0.0-5.0); MEAN CELL VOLUME 90.6 fL CALC (80.0-100.0); MEAN CORPUSCULAR HGB 28.5 pG CALC (26.0-32.0); MEAN CORPUSCULAR HGB CONC 31.5 g/L CALC (32.0-36.0); NEUT# 8.1 thou/uL (2.00-7.15); RED BLOOD COUNT 4.59 mill/uL (4.20-5.60); RED CELL DISTRI WIDTH 12.3 % (11.5-15.5)
[2018-12-20 10:03] LABS: ALBUMIN 4.2 g/dL (3.2-5.0); ALKALINE PHOSPHATASE 63 u/l (38-126); AMYLASE 37 u/l (30-110); ANION GAP 15 (6-22 (CALC)); BUN 6 mg/dL (7-17); BUN/CREATININE RATIO 10 (12-20 (CALC)); CARBON DIOXIDE 26 mmol/l (22-30); CHLORIDE 100 mmol/l (95-108); CREATININE 0.7 mg/dL (0.5-1.0); GFR > 60 ML/MIN (>=60 (CALC)); GFR FOR AFR.AMER. > 60 ML/MIN (>=60 (CALC)); LIPASE 44 u/l (23-300); SGOT/AST 39 u/l (14-36); SODIUM 137 mmol/l (137-146); TOTAL PROTEIN 7.7 g/dL (6.3-8.2)
[2018-12-20 10:07] LABS: BILIRUBIN, TOTAL 0.7 mg/dL (0.0-1.4)
[2018-12-20] MEDS ORDERED: PHENERGAN25 MG/TAB PO (10:33)
[2018-12-20] MEDS ORDERED: LOMOTIL2.5 MG PO (10:33)
[2018-12-20 10:55] VITALS: BP 123/63
== END 2018-12-20 10:54 | disposition home or self-care (01) | DRG 305 ==
LOC: ED 08:50
PROVIDERS: Family Medicine
DX: I10 Essential (primary) hypertension (principal); E11.9 Type 2 diabetes mellitus without complications; Z79.84 Long term (current) use of oral hypoglycemic drugs; R19.7 Diarrhea, unspecified

== ENCOUNTER 2019-01-08 12:58 | Emergency (ER) | payer SELFPAY ==
[~2019-01-08] VITALS: Ht 154.9 cm; Wt 102.0 kg
[2019-01-08] MEDS ORDERED: DICYCLOMINE20 MG PO (15:37)
[2019-01-08 16:03] VITALS: BP 130/76
== END 2019-01-08 16:03 | disposition home or self-care (01) | DRG 392 ==
LOC: ED 12:58
DX: A08.11 Acute gastroenteropathy due to Norwalk agent (principal); R19.7 Diarrhea, unspecified; B97.89 Other viral agents as the cause of diseases classified elsewhere

== ENCOUNTER 2019-02-06 17:54 | Emergency (ER) | payer SELFPAY ==
[~2019-02-06] VITALS: Ht 154.9 cm; Wt 109.0 kg
[~2019-02-06 17:54] MED LIST changes: +DICYCLOMINE20 MG PO
[2019-02-06 19:35] LABS: HEMATOCRIT 40.8 % (37.0-47.0); IMMATURE GRANULOCYTES 0.6 % (0.0-5.0); MEAN CELL VOLUME 90.3 fL CALC (80.0-100.0); MEAN CORPUSCULAR HGB 28.8 pG CALC (26.0-32.0); MEAN CORPUSCULAR HGB CONC 31.9 g/L CALC (32.0-36.0); NEUT# 11.65 thou/uL (2.00-7.15); RED BLOOD COUNT 4.52 mill/uL (4.20-5.60); RED CELL DISTRI WIDTH 12.2 % (11.5-15.5)
[2019-02-06 19:42] LABS: URINE BILIRUBIN - DIPSTICK NEGATIVE (NEGATIVE); URINE BLOOD DIPSTICK NEGATIVE (NEGATIVE); URINE COLOR YELLOW; URINE GLUCOSE - DIPSTICK NEGATIVE (NEGATIVE); URINE KETONE NEGATIVE (NEGATIVE); URINE LEUK ESTERASE NEGATIVE (NEGATIVE); URINE NITRITE - DIPSTICK NEGATIVE (Negative); URINE PROTEIN - DIPSTICK NEGATIVE (NEG-TRACE); URINE SPECIFIC GRAVITY <=1.005; URINE UROBILINOGEN - DIPSTICK 0.2 E.U./dL (0.2)
[2019-02-06 19:56] LABS: ALBUMIN 4.8 g/dL (3.2-5.0); ALKALINE PHOSPHATASE 58 u/l (38-126); AMYLASE 52 u/l (30-110); ANION GAP 18 (6-22 (CALC)); BILIRUBIN, TOTAL 0.4 mg/dL (0.0-1.4); BUN 11 mg/dL (7-17); BUN/CREATININE RATIO 13 (12-20 (CALC)); CARBON DIOXIDE 30 mmol/l (22-30); CHLORIDE 96 mmol/l (95-108); CREATININE 0.9 mg/dL (0.5-1.0); GFR > 60 ML/MIN (>=60 (CALC)); GFR FOR AFR.AMER. > 60 ML/MIN (>=60 (CALC)); LIPASE 82 u/l (23-300); POTASSIUM 3.9 mmol/l (3.5-5.1); SGOT/AST 30 u/l (14-36); SODIUM 139 mmol/l (137-146); TOTAL PROTEIN 8.7 g/dL (6.3-8.2)
[2019-02-06 20:08] LABS: MYOGLOBIN 35 ng/mL (0 - 62)
[2019-02-06] MEDS ORDERED: ONDANSETRON4 MG PO (21:15)
[2019-02-06 21:23] VITALS: BP 125/76
== END 2019-02-06 21:23 | disposition home or self-care (01) | DRG 866 ==
LOC: ED 17:54
PROVIDERS: Emergency Medicine
DX: B34.9 Viral infection, unspecified (principal); E11.9 Type 2 diabetes mellitus without complications; I10 Essential (primary) hypertension

== ENCOUNTER 2019-03-18 | Emergency (ER) | payer SELFPAY ==
[2019-03-18] MEDS ORDERED: ATENOLOL50 MG PO (10:38)
[2019-03-18 10:58] LABS: URINE BILIRUBIN - DIPSTICK NEGATIVE (NEGATIVE); URINE BLOOD DIPSTICK NEGATIVE (NEGATIVE); URINE COLOR YELLOW; URINE GLUCOSE - DIPSTICK NEGATIVE (NEGATIVE); URINE KETONE NEGATIVE (NEGATIVE); URINE LEUK ESTERASE NEGATIVE (NEGATIVE); URINE NITRITE - DIPSTICK NEGATIVE (Negative); URINE PH 6.5 (4.5-8.0); URINE PROTEIN - DIPSTICK NEGATIVE (NEG-TRACE); URINE SPECIFIC GRAVITY <=1.005; URINE UROBILINOGEN - DIPSTICK 0.2 E.U./dL (0.2)
[2019-03-18 11:09] LABS: HEMATOCRIT 43.4 % (37.0-47.0); HEMOGLOBIN 13.9 g/dl (12.0-16.0); IMMATURE GRANULOCYTES 0.6 % (0.0-5.0); MEAN CELL VOLUME 90.8 fL CALC (80.0-100.0); MEAN CORPUSCULAR HGB 29.1 pG CALC (26.0-32.0); NEUT# 6.67 thou/uL (2.00-7.15); RED BLOOD COUNT 4.78 mill/uL (4.20-5.60); RED CELL DISTRI WIDTH 12.3 % (11.5-15.5)
[2019-03-18 11:22] LABS: ALBUMIN 4.7 g/dL (3.2-5.0); ALKALINE PHOSPHATASE 61 u/l (38-126); ANION GAP 17 (6-22 (CALC)); BILIRUBIN, TOTAL 0.3 mg/dL (0.0-1.4); BUN 11 mg/dL (7-17); BUN/CREATININE RATIO 15 (12-20 (CALC)); CARBON DIOXIDE 26 mmol/l (22-30); CHLORIDE 102 mmol/l (95-108); CREATININE 0.7 mg/dL (0.5-1.0); GFR > 60 ML/MIN (>=60 (CALC)); GFR FOR AFR.AMER. > 60 ML/MIN (>=60 (CALC)); POTASSIUM 4.2 mmol/l (3.5-5.1); SGOT/AST 28 u/l (14-36); SODIUM 140 mmol/l (137-146); TOTAL PROTEIN 8.4 g/dL (6.3-8.2)
== END 2019-03-18 12:14 | disposition home or self-care (01) | DRG 696 ==
PROVIDERS: Family Medicine
DX: R35.0 Frequency of micturition (principal); E11.9 Type 2 diabetes mellitus without complications; I10 Essential (primary) hypertension; Z79.4 Long term (current) use of insulin

== ENCOUNTER 2019-05-03 | Emergency (ER) | payer SELFPAY ==
[2019-05-03 01:09] LABS: HEMATOCRIT 42.2 % (37.0-47.0); HEMOGLOBIN 13.2 g/dl (12.0-16.0); IMMATURE GRANULOCYTES 0.7 % (0.0-5.0); MEAN CELL VOLUME 91.3 fL CALC (80.0-100.0); MEAN CORPUSCULAR HGB 28.6 pG CALC (26.0-32.0); MEAN CORPUSCULAR HGB CONC 31.3 g/L CALC (32.0-36.0); NEUT# 9.98 thou/uL (2.00-7.15); RED BLOOD COUNT 4.62 mill/uL (4.20-5.60); RED CELL DISTRI WIDTH 12.6 % (11.5-15.5)
[2019-05-03 01:12] LABS: ALBUMIN 4.6 g/dL (3.2-5.0); ALKALINE PHOSPHATASE 66 u/l (38-126); AMYLASE 40 u/l (30-110); ANION GAP 15 (6-22 (CALC)); BILIRUBIN, TOTAL 0.4 mg/dL (0.0-1.4); BUN 11 mg/dL (7-17); BUN/CREATININE RATIO 14 (12-20 (CALC)); CARBON DIOXIDE 28 mmol/l (22-30); CHLORIDE 99 mmol/l (95-108); CREATININE 0.8 mg/dL (0.5-1.0); GFR > 60 ML/MIN (>=60 (CALC)); GFR FOR AFR.AMER. > 60 ML/MIN (>=60 (CALC)); LIPASE 105 u/l (23-300); POTASSIUM 3.9 mmol/l (3.5-5.1); SGOT/AST 25 u/l (14-36); SODIUM 138 mmol/l (137-146); TOTAL PROTEIN 8.1 g/dL (6.3-8.2)
[2019-05-03 01:58] LABS: BARBITURATES NEGATIVE (NEGATIVE); COCAINE NEGATIVE (NEGATIVE); METHADONE NEGATIVE (NEGATIVE); OXCYCODONE NEGATIVE (NEGATIVE); TETRAHYDROCANNABIONOL NEGATIVE (NEGATIVE); TRICYLIC ANTIDEPRESSANTS NEGATIVE (NEGATIVE)
[2019-05-03 02:01] LABS: URINE BILIRUBIN - DIPSTICK NEGATIVE (NEGATIVE); URINE BLOOD DIPSTICK NEGATIVE (NEGATIVE); URINE COLOR YELLOW; URINE GLUCOSE - DIPSTICK NEGATIVE (NEGATIVE); URINE KETONE NEGATIVE (NEGATIVE); URINE LEUK ESTERASE NEGATIVE (NEGATIVE); URINE NITRITE - DIPSTICK NEGATIVE (Negative); URINE PH 6.5 (4.5-8.0); URINE PROTEIN - DIPSTICK NEGATIVE (NEG-TRACE); URINE SPECIFIC GRAVITY <=1.005; URINE UROBILINOGEN - DIPSTICK 0.2 E.U./dL (0.2)
== END 2019-05-03 02:35 | disposition home or self-care (01) | DRG 392 ==
PROVIDERS: Emergency Medicine
DX: R11.2 Nausea with vomiting, unspecified (principal); D72.829 Elevated white blood cell count, unspecified; E11.9 Type 2 diabetes mellitus without complications; I10 Essential (primary) hypertension; Z79.84 Long term (current) use of oral hypoglycemic drugs

== ENCOUNTER 2019-06-16 | Emergency (ER) | payer SELFPAY ==
[2019-06-16] MEDS ORDERED: FAMOTIDINE20 M1 PO (21:05)
[2019-06-16 21:41] LABS: HEMATOCRIT 41.4 % (37.0-47.0); HEMOGLOBIN 13.3 g/dl (12.0-16.0); IMMATURE GRANULOCYTES 0.5 % (0.0-5.0); MEAN CELL VOLUME 90.2 fL CALC (80.0-100.0); MEAN CORPUSCULAR HGB CONC 32.1 g/dL CAL (32.0-36.0); NEUT# 10.28 thou/uL (2.00-7.15); RED BLOOD COUNT 4.59 mill/uL (4.20-5.60); RED CELL DISTRI WIDTH 12.5 % (11.5-15.5)
[2019-06-16 21:51] LABS: ALBUMIN 4.6 g/dL (3.2-5.0); ALKALINE PHOSPHATASE 55 u/l (38-126); ANION GAP 15 (6-22 (CALC)); BILIRUBIN, TOTAL 0.5 mg/dL (0.0-1.4); BUN 10 mg/dL (7-17); BUN/CREATININE RATIO 13 (12-20 (CALC)); CARBON DIOXIDE 28 mmol/l (22-30); CHLORIDE 97 mmol/l (95-108); CREATININE 0.7 mg/dL (0.5-1.0); GFR > 60 ML/MIN (>=60 (CALC)); GFR FOR AFR.AMER. > 60 ML/MIN (>=60 (CALC)); POTASSIUM 3.9 mmol/l (3.5-5.1); SGOT/AST 36 u/l (14-36); SODIUM 136 mmol/l (137-146); TOTAL PROTEIN 7.9 g/dL (6.3-8.2)
[2019-06-16 22:00] LABS: ACT PARTIAL THROMBO TIME 26.9 SECONDS (20.0-32.5); D-DIMER 0.17 mg/L (0.19-0.60); PROTHROMBIN TIME 10.1 SECONDS (9.0-12.5)
[2019-06-16 22:49] LABS: URINE BILIRUBIN - DIPSTICK NEGATIVE (NEGATIVE); URINE BLOOD DIPSTICK NEGATIVE (NEGATIVE); URINE COLOR YELLOW; URINE GLUCOSE - DIPSTICK NEGATIVE (NEGATIVE); URINE KETONE NEGATIVE (NEGATIVE); URINE LEUK ESTERASE NEGATIVE (NEGATIVE); URINE NITRITE - DIPSTICK NEGATIVE (Negative); URINE PROTEIN - DIPSTICK NEGATIVE (NEG-TRACE); URINE SPECIFIC GRAVITY <=1.005; URINE UROBILINOGEN - DIPSTICK 0.2 E.U./dL (0.2)
[2019-06-16 22:54] LABS: BARBITURATES NEGATIVE (NEGATIVE); COCAINE NEGATIVE (NEGATIVE); METHADONE NEGATIVE (NEGATIVE); OXCYCODONE NEGATIVE (NEGATIVE); TETRAHYDROCANNABIONOL NEGATIVE (NEGATIVE); TRICYLIC ANTIDEPRESSANTS NEGATIVE (NEGATIVE)
== END 2019-06-16 23:35 | disposition home or self-care (01) | DRG 305 ==
DX: I10 Essential (primary) hypertension (principal); F41.9 Anxiety disorder, unspecified; D72.829 Elevated white blood cell count, unspecified; R00.0 Tachycardia, unspecified; E11.9 Type 2 diabetes mellitus without complications; Z79.84 Long term (current) use of oral hypoglycemic drugs

== ENCOUNTER 2019-08-10 17:50 | Emergency (ER) | payer SELFPAY ==
[~2019-08-10] VITALS: Ht 154.9 cm; Wt 111.0 kg
[2019-08-10 18:11] VITALS: BP 170/77
[2019-08-10] MEDS ORDERED: LOMOTIL2.5 MG PO (18:41)
== END 2019-08-10 18:59 | disposition home or self-care (01) | DRG 392 ==
LOC: ED 17:50
DX: R19.7 Diarrhea, unspecified (principal); E11.9 Type 2 diabetes mellitus without complications; I10 Essential (primary) hypertension; Z79.84 Long term (current) use of oral hypoglycemic drugs

== ENCOUNTER 2023-09-25 16:39 | Observation (INO) | payer SELFPAY ==
[2023-09-25] VITALS (9 sets, daily range): BP systolic 146–174; BP diastolic 81–91
[~2023-09-25] VITALS: Ht 154.9 cm; Wt 71.2 kg
[~2023-09-25 16:39] MED LIST changes: +LASIX 20 MG TAB20 MG PO; -LASIX 40 MG40 MG/TAB PO
[2023-09-25 18:29] LABS: BASO% 0.7 % (0-3); EOS% 0.1 % (0-8); HEMATOCRIT 41.2 % (37.0-47.0); HEMOGLOBIN 14.7 g/dl (12.0-16.0); IMMATURE GRANULOCYTES 0.1 % (0.0-5.0); LYMPH% 19.3 % (15-41); MEAN CELL VOLUME 105.1 fL CALC (80.0-100.0); MEAN CORPUSCULAR HGB 37.5 pG CALC (26.0-32.0); MEAN CORPUSCULAR HGB CONC 35.7 g/dL CAL (32.0-36.0); MONO% 6.6 % (2-13); NEUT# 5.18 thou/uL (2.00-7.15); NEUT% 73.2 % (42-76); RED BLOOD COUNT 3.92 mill/uL (4.20-5.60); RED CELL DISTRI WIDTH 11.9 % (11.5-15.5)
[2023-09-25 18:30] LABS: URINE BLOOD DIPSTICK Moderate (NEGATIVE); URINE GLUCOSE - DIPSTICK Negative (NEGATIVE); URINE KETONE Negative (NEGATIVE); URINE NITRITE - DIPSTICK Negative (Negative); URINE PROTEIN - DIPSTICK 100 mg/dL (NEG-TRACE); URINE UROBILINOGEN - DIPSTICK 0.2 E.U./dL (0.2)
[2023-09-25 18:33] LABS: URINE COLOR Yellow; URINE LEUK ESTERASE Small (NEGATIVE)
[2023-09-25 18:40] LABS: ALBUMIN 4.7 g/dL (3.2-5.0); CREATININE 1.1 mg/dL (0.5-1.0); MAGNESIUM 1.3 mg/dL (1.6-2.3); TOTAL PROTEIN 8.2 g/dL (6.3-8.2)
[2023-09-25 18:42] LABS: URINE CALCIUM OXALATE CRYSTALS FEW lpf; URINE SQUAMOUS EPITHELIAL CELL MODERATE EPI/hpf (0-FEW)
[2023-09-25 18:48] LABS: BILIRUBIN, TOTAL 1.5 mg/dL (0.02-1.3); POTASSIUM 2.4 mmol/l (3.5-5.1)
[2023-09-25] MEDS ORDERED: POTASSIUM CHLORIDE 20MEQ 100 ML IV ONE (18:50)
[2023-09-25] MEDS ORDERED: SODIUM CHLORIDE 0.9% 1,000 ML IV ONE ×3 (18:50→20:30)
[2023-09-25] MEDS ORDERED: POTASSIUM CHLORIDE 20 MEQ/TAB PO ONE (18:50)
[2023-09-25] MEDS ORDERED: MAGNESIUM SULFATE HEPTAHYDRATE 50 ML IV ONE ×2 (19:05→23:01)
[2023-09-25] MEDS ORDERED: Zaleplon 5 MG/CAP PO PRN (20:35)
[2023-09-25] MEDS ORDERED: MAGNESIUM HYDROXIDE 30 ML UDC PO PRN (20:35)
[2023-09-25] MEDS ORDERED: ACETAMINOPHEN 325 MG/TAB PO PRN (20:35)
[2023-09-25] MEDS ORDERED: INSULIN LISPRO 100 UNITS/ML ML SC SCH (21:00)
[2023-09-25] MEDS ORDERED: ENOXAPARIN SODIUM 40 MG/0.4 ML SYR SC SCH (21:00)
[2023-09-25] MEDS ORDERED: hydrALAZINE HCL 20 MG/ML VIAL(1 ML) IV PRN (22:25)
[2023-09-25] MEDS ORDERED: traZODone HCL 50 MG/TAB PO SCH (23:02)
[2023-09-26] VITALS (17 sets, daily range): BP systolic 122–162; BP diastolic 50–88
[2023-09-26 04:34] LABS: BASO% 0.7 % (0-3); EOS% 0.8 % (0-8); HEMOGLOBIN 13.2 g/dl (12.0-16.0); IMMATURE GRANULOCYTES 0.1 % (0.0-5.0); LYMPH% 34.9 % (15-41); MEAN CELL VOLUME 108.9 fL CALC (80.0-100.0); MEAN CORPUSCULAR HGB 37.8 pG CALC (26.0-32.0); MEAN CORPUSCULAR HGB CONC 34.7 g/dL CAL (32.0-36.0); MONO% 8.2 % (2-13); NEUT# 4.02 thou/uL (2.00-7.15); NEUT% 55.3 % (42-76); RED BLOOD COUNT 3.49 mill/uL (4.20-5.60)
[2023-09-26 05:02] LABS: ALBUMIN 3.8 g/dL (3.2-5.0); BILIRUBIN, TOTAL 1.1 mg/dL (0.02-1.3); POTASSIUM 2.5 mmol/l (3.5-5.1); TOTAL PROTEIN 6.5 g/dL (6.3-8.2)
[2023-09-26] MEDS ORDERED: POTASSIUM CHLORIDE 20 MEQ/TAB PO SCH ×2 (09:00)
[2023-09-26] MEDS ORDERED: FUROSEMIDE 40 MG/TAB PO SCH (09:00)
[2023-09-26] MEDS ORDERED: ATENOLOL 25 MG TAB PO SCH (09:00)
[2023-09-26] MEDS ORDERED: busPIRone HCL 5 MG/TAB PO SCH (09:00)
[2023-09-26] MEDS ORDERED: ATENOLOL 50 MG/TAB PO SCH (09:00)
[2023-09-26 11:35] LABS: CREATININE 1.1 mg/dL (0.5-1.0)
[2023-09-26 11:42] LABS: POTASSIUM 3.2 mmol/l (3.5-5.1)
[2023-09-26] MEDS ORDERED: KEFLEX500 MG PO (12:20)
[2023-09-26] MEDS ORDERED: traZODone HCL 50 MG/TAB PO SCH (21:00)
== END 2023-09-26 12:59 | disposition home or self-care (01) | DRG 641 ==
LOC: ED 16:39 → ED-I 19:30 → ED 20:13 → ICU 20:14
PROVIDERS: Nurse Practitioner; Nurse Practitioner Family; ADMIT Internal Medicine; ATTEND Internal Medicine
DX: E87.6 Hypokalemia (principal); N39.0 Urinary tract infection, site not specified; E83.42 Hypomagnesemia; I10 Essential (primary) hypertension; E11.9 Type 2 diabetes mellitus without complications; F41.9 Anxiety disorder, unspecified; Z79.84 Long term (current) use of oral hypoglycemic drugs
CPT/HCPCS: J1650; J3475

== ENCOUNTER 2023-10-06 19:23 | Emergency (ER) | payer SELFPAY ==
[2023-10-06] VITALS (9 sets, daily range): BP systolic 157–179; BP diastolic 82–97
[~2023-10-06] VITALS: Ht 154.9 cm; Wt 81.6 kg
[~2023-10-06 19:23] MED LIST changes: +KEFLEX500 MG PO
[2023-10-06] MEDS ORDERED: MECLIZINE HCL 25 MG/TAB PO ONE (19:50)
[2023-10-06 20:40] LABS: BASO% 0.7 % (0-3); EOS% 3.5 % (0-8); HEMATOCRIT 41.5 % (37.0-47.0); HEMOGLOBIN 13.9 g/dl (12.0-16.0); IMMATURE GRANULOCYTES 0.4 % (0.0-5.0); MEAN CELL VOLUME 111.9 fL CALC (80.0-100.0); MEAN CORPUSCULAR HGB 37.5 pG CALC (26.0-32.0); MEAN CORPUSCULAR HGB CONC 33.5 g/dL CAL (32.0-36.0); MONO% 6.9 % (2-13); NEUT# 5.89 thou/uL (2.00-7.15); NEUT% 62.5 % (42-76); RED BLOOD COUNT 3.71 mill/uL (4.20-5.60); RED CELL DISTRI WIDTH 11.5 % (11.5-15.5)
[2023-10-06 20:51] LABS: URINE BILIRUBIN - DIPSTICK Negative (NEGATIVE); URINE BLOOD DIPSTICK Negative (NEGATIVE); URINE GLUCOSE - DIPSTICK Negative (NEGATIVE); URINE KETONE Trace mg/dL (NEGATIVE); URINE LEUK ESTERASE Trace (NEGATIVE); URINE NITRITE - DIPSTICK Negative (Negative); URINE PH 5.5 (4.5-8.0); URINE PROTEIN - DIPSTICK Negative (NEG-TRACE); URINE SPECIFIC GRAVITY >=1.030; URINE UROBILINOGEN - DIPSTICK 0.2 E.U./dL (0.2)
[2023-10-06 20:57] LABS: URINE COLOR Yellow
[2023-10-06 20:59] LABS: BUN 12 mg/dL (7-17); BUN/CREATININE RATIO 10 (12-20 (CALC)); CHLORIDE 107 mmol/l (95-108); CREATININE 1.2 mg/dL (0.5-1.0); ESTIMATED GFR 57 ML/MIN (>=90 (CALC)); SODIUM 141 mmol/l (137-146)
[2023-10-06 21:00] LABS: INTERNATIONAL NORMALIZED RATIO 1.1 RATIO (0.7-1.3)
[2023-10-06 21:05] LABS: PROTHROMBIN TIME 10.7 SECONDS (9.0-12.5)
[2023-10-06 21:13] LABS: ALBUMIN 4.6 g/dL (3.2-5.0); ALKALINE PHOSPHATASE 133 u/l (38-126); ANION GAP 15 (6-22 (CALC)); BILIRUBIN, TOTAL 0.6 mg/dL (0.02-1.3); CARBON DIOXIDE 24 mmol/l (22-30); POTASSIUM 4.8 mmol/l (3.5-5.1); SGOT/AST 53 u/l (14-36); TOTAL PROTEIN 8.1 g/dL (6.3-8.2)
[2023-10-06] MEDS ORDERED: MAGNESIUM OXIDE 400 MG/TAB PO ONE (21:50)
[2023-10-06] MEDS ORDERED: MAGNESIUM200 MG PO (22:00)
[2023-10-06] MEDS ORDERED: MECLIZINE25 MG PO (22:00)
== END 2023-10-06 22:10 | disposition home or self-care (01) | DRG 149 ==
LOC: ED 19:23
PROVIDERS: Family Medicine
DX: R42 Dizziness and giddiness (principal); E83.42 Hypomagnesemia; I10 Essential (primary) hypertension; E11.9 Type 2 diabetes mellitus without complications; F41.9 Anxiety disorder, unspecified; J45.909 Unspecified asthma, uncomplicated; Z79.84 Long term (current) use of oral hypoglycemic drugs

== ENCOUNTER 2023-12-01 17:07 | Emergency (ER) | payer SELFPAY ==
[~2023-12-01] VITALS: Ht 154.9 cm; Wt 76.0 kg
[2023-12-01] VITALS (13 sets, daily range): BP systolic 143–182; BP diastolic 77–106
[~2023-12-01 17:07] MED LIST changes: +MAGNESIUM200 MG PO; +MECLIZINE25 MG PO
[2023-12-01 17:34] LABS: BASO% 0.6 % (0-3); EOS% 1.4 % (0-8); HEMATOCRIT 46.5 % (37.0-47.0); IMMATURE GRANULOCYTES 0.2 % (0.0-5.0); MEAN CELL VOLUME 105.2 fL CALC (80.0-100.0); MEAN CORPUSCULAR HGB CONC 34.2 g/dL CAL (32.0-36.0); MONO% 9.1 % (2-13); NEUT# 5.89 thou/uL (2.00-7.15); NEUT% 67.7 % (42-76); RED BLOOD COUNT 4.42 mill/uL (4.20-5.60); RED CELL DISTRI WIDTH 11.6 % (11.5-15.5)
[2023-12-01 17:38] LABS: HEMOGLOBIN 15.9 g/dl (12.0-16.0)
[2023-12-01] MEDS ORDERED: SODIUM CHLORIDE 0.9% 1,000 ML IV ONE (17:40)
[2023-12-01] MEDS ORDERED: LABETALOL HCL 20 MG/ 4 ML CARTRG IV ONE (17:40)
[2023-12-01] MEDS ORDERED: ALPRAZolam 0.5 MG/TAB PO ONE (17:40)
[2023-12-01 17:52] LABS: CREATININE 1.2 mg/dL (0.5-1.0); MAGNESIUM 1.7 mg/dL (1.6-2.3); POTASSIUM 4.2 mmol/l (3.5-5.1); TOTAL PROTEIN 8.5 g/dL (6.3-8.2)
[2023-12-01 17:56] LABS: BILIRUBIN, TOTAL 1.4 mg/dL (0.02-1.3)
[2023-12-01 18:56] LABS: URINE BLOOD DIPSTICK Moderate (NEGATIVE); URINE GLUCOSE - DIPSTICK Negative (NEGATIVE); URINE KETONE Trace mg/dL (NEGATIVE); URINE LEUK ESTERASE Trace (NEGATIVE); URINE NITRITE - DIPSTICK Negative (Negative); URINE PH 5.5 (4.5-8.0); URINE PROTEIN - DIPSTICK 100 mg/dL (NEG-TRACE); URINE SPECIFIC GRAVITY >=1.030; URINE UROBILINOGEN - DIPSTICK 0.2 E.U./dL (0.2)
[2023-12-01 18:57] LABS: URINE COLOR Yellow
[2023-12-01 19:05] LABS: URINE BACTERIA FEW hpf; URINE SQUAMOUS EPITHELIAL CELL FEW EPI/hpf (0-FEW)
[2023-12-01 19:06] LABS: URINE HYALINE CAST FEW lpf (NONE-RARE)
== END 2023-12-01 19:25 | disposition home or self-care (01) | DRG 880 ==
LOC: ED 17:07
PROVIDERS: Nurse Practitioner
DX: F41.9 Anxiety disorder, unspecified (principal); I10 Essential (primary) hypertension; E11.9 Type 2 diabetes mellitus without complications; J45.909 Unspecified asthma, uncomplicated; Z86.14 Personal history of Methicillin resistant Staphylococcus aureus infection; Z79.84 Long term (current) use of oral hypoglycemic drugs